=== PATIENT | female | born 1980 | race Native Hawaiian/Other Pacific Islander ===

== ENCOUNTER 2016-10-24 11:31 | Outpatient (CLI) | payer BC | END 2016-10-24 12:35 | disposition home or self-care (01) | LOC: RAD 11:31 | DX: R11.0 Nausea (principal); R50.9 Fever, unspecified; R10.84 Generalized abdominal pain ==

== ENCOUNTER 2017-08-29 22:26 | Emergency (ER) | payer BC ==
[~2017-08-29] VITALS: Ht 172.7 cm; Wt 62.6 kg
[2017-08-29 23:59] LABS: PLATELET COUNT 222 K/uL (152-353)
[2017-08-30 00:22] LABS: POTASSIUM 3.9 mmol/L (3.6-5.2)
[2017-08-30 04:28] VITALS: BP 103/64; TEMP 99
== END 2017-08-30 04:28 | disposition short-term general hospital (02) ==
LOC: ED 22:26
DX: K35.80 Unspecified acute appendicitis (principal)
CPT/HCPCS: 80053; 81000; 85027; 96360; 96375; 99285; J0295; J1885; J2175; J2405; J2550; Q9963

== ENCOUNTER 2017-08-30 04:28 | Outpatient (CLI) | payer BC | END 2017-08-30 04:44 | disposition short-term general hospital (02) | LOC: AMB 04:28 | DX: K35.80 Unspecified acute appendicitis (principal) | CPT/HCPCS: A0425; A0429 ==

== ENCOUNTER 2017-09-11 12:49 | Outpatient (CLI) | payer BC ==
[2017-09-11 13:04] LABS: PLATELET COUNT 480 K/uL (152-353)
== END 2017-09-11 19:15 | disposition home or self-care (01) ==
LOC: LABW 12:49
PROVIDERS: Student in an Organized Health Care Education/Training Program
DX: Z09 Encounter for follow-up examination after completed treatment for conditions other than malignant neoplasm (principal); R79.89 Other specified abnormal findings of blood chemistry
CPT/HCPCS: 36415; 85027

== ENCOUNTER 2017-09-12 12:20 | Inpatient (IN) | payer BC ==
[~2017-09-12] VITALS: Ht 162.6 cm; Wt 59.7 kg
[2017-09-12 15:11] VITALS: BP 102/62; TEMP 98.2; Ht 162.6 cm; Wt 59.7 kg
[2017-09-12 16:00] VITALS: BP 93/57; TEMP 98.2
[2017-09-12 20:04] VITALS: BP 102/55; TEMP 98.4
[2017-09-13] VITALS (7 sets, daily range): BP systolic 96–110; BP diastolic 52–62; TEMP 97.7–98.5
[2017-09-13 05:37] LABS: PLATELET COUNT 390 K/uL (152-353)
[2017-09-13 05:46] LABS: POTASSIUM 3.9 mmol/L (3.6-5.2)
[2017-09-14 04:00] VITALS: BP 91/50; TEMP 98.2
[2017-09-14 07:25] VITALS: BP 102/59; TEMP 97.5
[2017-09-14 11:54] VITALS: BP 102/62; TEMP 97.9
[2017-09-14 12:54] LABS: PLATELET COUNT 409 K/uL (152-353)
[2017-09-14 13:05] LABS: POTASSIUM 3.4 mmol/L (3.6-5.2)
[2017-09-14 16:00] VITALS: BP 95/55; TEMP 98.2
[2017-09-14 20:00] VITALS: BP 102/56; TEMP 98.5
[2017-09-15] VITALS: BP 102/63; TEMP 98
[2017-09-15 03:59] VITALS: BP 96/51; TEMP 98.1
[2017-09-15 06:20] LABS: PLATELET COUNT 357 K/uL (152-353)
[2017-09-15 06:25] LABS: POTASSIUM 4.2 mmol/L (3.6-5.2)
[2017-09-15 08:08] VITALS: BP 93/55; TEMP 98.5
== END 2017-09-15 13:15 | disposition home or self-care (01) | DRG 920 ==
LOC: MED/SURG 12:20
PROVIDERS: ADMIT Student in an Organized Health Care Education/Training Program
DX: T81.89XA Other complications of procedures, not elsewhere classified, initial encounter (principal); R18.8 Other ascites; Y83.8 Other surgical procedures as the cause of abnormal reaction of the patient, or of later complication, without mention of misadventure at the time of the procedure; Y92.89 Other specified places as the place of occurrence of the external cause; Z98.890 Other specified postprocedural states; D72.828 Other elevated white blood cell count
CPT/HCPCS: 36415; 80048; 81000; 85027; 96365; 96366; 96367; 99220; G0378; G0379; J1650; J2405; J2543

== ENCOUNTER 2017-09-16 10:23 | Outpatient (CLI) | payer BC ==
[~2017-09-16] VITALS: Ht 162.6 cm; Wt 57.2 kg
== END 2017-09-16 23:24 | disposition home or self-care (01) ==
LOC: INF 10:23
DX: K65.1 Peritoneal abscess (principal)
CPT/HCPCS: 96365; J1335

== ENCOUNTER 2017-09-17 08:59 | Outpatient (CLI) | payer BC ==
[~2017-09-17] VITALS: Ht 162.6 cm; Wt 57.2 kg
[2017-09-17 09:03] VITALS: BP 104/63; TEMP 98.7
[2017-09-17 09:48] VITALS: BP 104/63; TEMP 98.6
== END 2017-09-17 09:54 | disposition home or self-care (01) ==
LOC: INF 08:59
DX: K65.1 Peritoneal abscess (principal)
CPT/HCPCS: 96365; J1335

== ENCOUNTER 2017-09-18 08:52 | Outpatient (CLI) | payer BC ==
[~2017-09-18] VITALS: Ht 162.6 cm; Wt 57.4 kg
== END 2017-09-18 22:03 | disposition home or self-care (01) ==
LOC: INF 08:52
DX: K65.1 Peritoneal abscess (principal)
CPT/HCPCS: 96365; J1335

== ENCOUNTER 2017-09-19 15:10 | Outpatient (CLI) | payer BC | END 2017-09-19 19:37 | disposition home or self-care (01) | LOC: INF 15:10 | DX: K65.1 Peritoneal abscess (principal) | CPT/HCPCS: 96365; J1335 ==

== ENCOUNTER 2017-09-20 14:53 | Outpatient (CLI) | payer BC | END 2017-09-20 18:00 | disposition home or self-care (01) | LOC: INF 14:53 | DX: K65.1 Peritoneal abscess (principal) | CPT/HCPCS: 96365; J1335 ==

== ENCOUNTER 2017-09-21 09:18 | Outpatient (CLI) | payer BC ==
[~2017-09-21] VITALS: Ht 162.6 cm; Wt 57.2 kg
== END 2017-09-21 23:02 | disposition home or self-care (01) ==
LOC: INF 09:18
DX: K65.1 Peritoneal abscess (principal)
CPT/HCPCS: 96365; J1335

== ENCOUNTER 2017-09-22 12:16 | Outpatient (CLI) | payer BC ==
[~2017-09-22] VITALS: Ht 162.6 cm; Wt 57.2 kg
== END 2017-09-22 23:48 | disposition home or self-care (01) ==
LOC: INF 12:16
DX: R10.33 Periumbilical pain (principal); K65.1 Peritoneal abscess
CPT/HCPCS: 96365; J1335; Q9963

== ENCOUNTER 2017-10-22 13:12 | Outpatient (CLI) | payer BC | END 2017-10-22 21:19 | disposition home or self-care (01) | LOC: US 13:12 | DX: R10.31 Right lower quadrant pain (principal) ==

== ENCOUNTER 2022-05-07 18:44 | Outpatient (CLI) | payer BC | END 2022-05-07 19:34 | disposition home or self-care (01) | LOC: RESP 18:44 | PROVIDERS: ATTEND Nurse Practitioner Family | DX: R07.89 Other chest pain (principal) | CPT/HCPCS: 93005 ==